=== PATIENT | male | born 1950 | race Caucasian/White ===

== ENCOUNTER 2023-10-28 13:04 | Emergency (ER) | payer MEDICARE, BC, SELFPAY ==
[2023-10-28 13:16] VITALS: BP 150/84; PULSE 65; RESP 16; TEMP 36.3; O2SAT 98; BMI 21.6
--- OUTSIDE RECORDS SUMMARY | 2023-10-28 13:55 | XMS_ITS | Clinical Summary ---
Author Name Unknown Organization [employer] [facility] Address [place], [place] [address] Care Team Providers Care Pin Attacher Name Role Phone Votel, Alphonse Sutherland MD Primary Care Provider + Allergies Active Allergy Reactions Criticality Noted Date Comments Venom-Honey Bee Edema High 03/25/2010 Bee venom Gets exuberant local reaction, no anaphylaxis Medications Medication Sig Dispensed Refills Start Date End Date Status acetaminophen (TYLENOL EXTRA STRGTH) 500 mg tabletIndications :S/P MVR (mitral valve replacement) Take 2 Tablets (1,000 mg) by mouth every 6 hours if needed. Max acetaminophen dose: 4000mg in 24 hrs. 0 02/25/2021 Active aspirin chewable 81 mg chewable tabletIndications :S/P MVR (mitral valve replacement) Chew 1 Tablet (81 mg) by mouth once daily with a meal. 0 02/26/2021 Active amoxicillin (AMOXIL) 500 mg tabletIndications :Need for SBE (subacute bacterial endocarditis) prophylaxis Take 4 tabs 1 hour before dental work 4 Tablet 4 11/11/2022 Active amLODIPine (NORVASC) 5 mg tabletIndications :Primary Raynaud's phenomenon Take 1 Tablet (5 mg) by mouth once daily. 90 Tablet 3 07/06/2023 Active warfarin (COUMADIN) 5 mg tabletIndications :Persistent atrial fibrillation (HC),Anticoagulat ion monitoring, INR range 2.5-3.5,S/P mitral valve replacement Take by mouth 2.5 mg (5 mg x 0.5) every Sat; 5 mg (5 mg x 1) all other days in the evening OR as directed 0 10/25/2023 Active warfarin (COUMADIN) 5 mg tabletIndications :Persistent atrial fibrillation (HC),Anticoagulat ion monitoring, INR range 2.5-3.5,S/P mitral valve replacement Take by mouth 5 mg (5 mg x 1 tablet) every day in the evening OR as directed 91 Tablet 1 08/02/2023 4 Discontinue d(Other - add note to specify (E-cancel not sent)) warfarin (COUMADIN) 5 mg tabletIndications :Persistent atrial fibrillation (HC),Anticoagulat ion monitoring, INR range 2.5-3.5,S/P mitral valve replacement Take by mouth 10/10: 2.5 mg; Otherwise 5 mg every day in the evening OR as directed 0 10/09/2023 4 Discontinue d(Other - add note to specify (E-cancel not sent)) warfarin (COUMADIN) 5 mg tabletIndications :Persistent atrial fibrillation (HC),Anticoagulat ion monitoring, INR range 2.5-3.5,S/P mitral valve replacement Take by mouth 2.5 mg (5 mg x 0.5) every Sat; 5 mg (5 mg x 1) all other days in the evening OR as directed 0 10/09/2023 4 Discontinue d(Other - add note to specify (E-cancel not sent)) warfarin (COUMADIN) 5 mg tabletIndications :Persistent atrial fibrillation (HC),Anticoagulat ion monitoring, INR range 2.5-3.5,S/P mitral valve replacement Take by mouth 2.5 mg (5 mg x 0.5) every Wed, Sat; 5 mg (5 mg x 1) all other days in the evening OR as directed 0 10/19/2023 4 Discontinue d(Other - add note to specify (E-cancel not sent)) Active Problems Patient Care Coordination No te Formatting of this note is d ifferent from the original. HF/Structural/Prevention Research Eligibility Review Date: 10/23/19 Upcoming Visit Location: [facility] Age: 69 y.o. Private Medicare Equivalent Body mass index is 20.88 kg/m??. Social History Tobacco Use Smoking Status Former Smoker ? ? Packs/day: 0.50 ? ? Years: 2.00 ? ? Pack years: 1.00 ? ? Types: Cigarettes ? ? Last attempt to quit: 10/04/1969 ? ? Years since quittin.0 Smokeless Tobacco Never Used Tobacco Comment Some light smoking while in the [place] 34 years ago Social History Substance and Sexual Activity Alcohol Use Yes ? ? Alcohol/week: 3.0 standard drinks ? ? Types: 3 Glasses of wine per week Comment: 3-4 glasses of wine per week/ Daily (according to ) Comments: HF: DNQ Structural: DNQ Prevention: Uncertain Not insulin Dependent Vesalius:Potential Problem Noted Date Diagnosed Date Anticoagulation monitoring, INR range 2.5-3.5 S/P mitral valve replacement 02/26/2021 S/P MVR (mitral valve replacement) 02/18/2021 Permanent atrial fibrillation 09/05/2020 Adenomatous colon polyp 03/29/2018 Overview: Colonoscopy 03/2018 polyp, repeat in 5 years Depression, acute 10/19/2017 Hyperlipidemia 02/08/2015 ACP (advance care planning) 03/31/2014 Overview: Patient has identified primary concerned person(s): Yes Add primary concerned person: Yes Health Care Agent(s): Primary Health Care Agent: Do Reddy Relationship: spouse or [phone] Secondary Health Care Agent: Relationship: Phone: Conservator: Relationship: Phone: Guardian: Relationship: Phone: Patient has Advance Care Plan Documents (Health Care Directive, POLST): No, Health Care Packet given to patient. Patient has identified Specific Treatment Preferences: No Specific limits to treatment preferences NOT identified: ASSUME FULL TREATMENT. S/P MVR (mitral valve repair) 03/29/2014 Overview: folding plasty repair of P3 segment of the posterior leaflet, and repair of the posterior commissure, and annuloplasty with a 30 mm CAMDEN 3-D ring -- 03/29/14 Dr. Lynn S/P Maze operation for atrial fibrillation 03/29 Overview: Ablation Maze procedure (isolation of pulmonary veins and ablation of the left atrial appendage) with exclusion of left atrial appendage (40 mm AtriCure clip). -- 03/29/14 Dr. Lynn Dysfunctional alcohol use 07/09/2011 Mitral regurgitation; moderate severe 08/01/2010 Depression 03/25/2010 Persistent atrial fibrillation Overview: -07/2010 atrial fibrillation despite cardioversion *rate control and anticoagulation strategy -03/29/2014 Ablation Maze procedure (isolation of pulmonary veins and ablation of the left atrial appendage) with exclusion of left atrial appendage (40 mm AtriCure clip). -- Dr. Lynn -09/20/2014 cardioversion with goal of sinus rhythm post ablation MAZE -06/2015 recurrent persistent atrial fibrillation *06/21/2015 cardioversion Mitral valve prolapse Overview: -associated moderate/severe mitral regurgitation -03/29/2014: folding plasty repair of P3 segment of the posterior leaflet, and repair of the posterior commissure, and annuloplasty with a 30 mm CAMDEN 3-D ring -- Dr. Lynn Chronotropic incompetence Biventricular Pacemaker 09/22/2013 Overview: -09/22/2013 BIV placed for chronotropic incompetence with Dr. Gonzalez *no atrial lead placed as patient with chronic afib at that time (rate control strategy) Nonischemic cardiomyopathy Overview: -History of LV EF 45%, cMR showing no evidence of scar -04/2013: LV EF 55% Transient global amnesia 02/02/2015 Cardiovascular symptoms Resolved Problems Problem Noted Date Diagnosed Date Resolved Date Peripheral vasoconstriction 09/05/2020 01/10/2021 Amnesia 02/02/2015 02/02/2015 Bradycardia 02/03/2013 03/19/2014 Other specified visual disturbances 04/22/2010 03/19/2014 Encounter for long-term (cur rent) use of anticoagulants 03/26/2010 04/04/2014 Overview: INR Goal Range: 2.0 -3.0 Hypertrophy of prostate with out urinary obstruction and other lower urinary tract symptoms (LUTS) 03/25/2010 07/13/2011 Lyme disease 03/25/2010 03/09/2014 Hx of Prostate cancer 03/25/2010 03/25/ 2022 Overview: History of radical prostatectomy with residual mild incontinence. Mitral valve disorders 03/25/201004/22 Encounters Date Type Department Care Team Description 10/27/2023 Telephone [facility] [address] [place] [phone] Analisa Mcintosh, RN Reschedule EP Procedure 10/27/2023 Telephone [facility] [address] [facility] [place] [address] [place] [address] Saba Contreras RN pre/post procedure 10/25/2023 10:30 AM VICTIM WITNESS ADMINISTRATOR Orders Only [facility] [address] [place] [address] [place] Lab 10/25/2023 Anticoagulation (warfarin) [facility] [address] [place] [address] 1, [place] [facility] Anticoagulation 10/25/2023 Telephone [facility] [address] [address] Ly Mckoy RN Anticoagulation 10/25/2023 Travel 10/19/2023 Anticoagulation (warfarin) [facility] [address] [place] [address] [place] [facility] Anticoagulation 10/18/2023 1:00 PM VICTIM WITNESS ADMINISTRATOR Orders Only [facility] [address] [place] [address] Lab[place] Lab 10/18/2023 Travel 10/09/2023 Anticoagulation (warfarin) [facility] [address] [place] [address] 1[place] [facility] Anticoagulation 10/08/2023 2:50 PM VICTIM WITNESS ADMINISTRATOR Orders Only [facility] [address] [place] [address] Lab, [place] 10/08/2023 Travel 09/29/2023 Telephone [facility] [address] [place] [address] 1[place] [facility] Anticoagulation (Hold Orders for Procedure 10/28/2023 ) 09/23/2023 Telephone [facility] [address] [place] [phone] Ly Mckoy, RN Appointment 08/23/2023 Telephone [facility] [address] [place] [address] June Husain PA Questions 08/17/2023 Travel 07/31/2023 Refill [facility] [address] [place] [address] Alphonse Claros MD Refill Request (Warfarin) from Last 3 Months Immunizations Name Administration Dates Next Due AMB INFLUENZA IIV3 (AGE 65+ YRS) PF (Flu Clinic Only) 08/10/2019 AMB Influenza, IIV4 PF (=>6 mos Flulaval,Fluzone Fluarix)(Flu Clinic Only) 09/01/2018 Amb Influenza, Inactivated A IIV4 (Age 65+ Years) Preserv Free 06/24/2020 COVID-19 vaccine (Moderna 100mcg/0.5mL) PF, MDV 12/26/2020,11/28/2020 Influenza, High-dose Inactivated 08/17/2016,02/2014 Influenza, High-dose Quadrivalent Inactivated Influenza, IIV3 (Age 6-35 mos) 07/15/2011 Influenza, IIV3 (Age >=3 years) 10/18/2013,07/22 Influenza, IIV4 06/25/2015 Influenza, Inactivated AIIV4 (Age 65+ Years) Preserv Free 07/06/2023,06/23/2022 Influenza, Inactivated IIV3 (Age 65+ Years) Preserv Free 09/21/2017 Oral Polio Vaccine 11/06/1994 Pneumococcal Poly,23-Valent (Pneumovax) 02/10/20 18 Pneumococcal conj 13-Valent (Prevnar 13) 016 Td (Age >=7 Years) 11/06/1994 Tdap 12/30/2009 Typhoid, Unspecified 11/06/1994 Family History Medical History Relation Name Comments Heart Disease Brother 3 A fib Good Health Brother 4 Diabetes Father type II Heart Disease Father Hyperlipidemia Father Hypertension Father Cancer-colon Maternal Aunt Asthma Maternal Uncle Hyperlipidemia Mother Other Sister 2 MS Relation Name Status Comments Brother 1 Alive Brother 2 Alive Brother 3 Brother 4 Father (Age 78) infection Maternal Aunt Maternal Uncle Mother Alive Sister 1 Alive Sister 2 Social History Tobacco Use Types Packs/Day Years Used Date Smoking Tobacco: Former Cigarettes 0.5 2 1 968 - 10/04/1969 Smokeless Tobacco: Never Tobacco Cessation:Counseling Given: Yes Comments:Some light smoking while in the [place] 34 years ago Alcohol Use Standard Drinks/Week Comments Yes 7 (1 standard drink = 0.6 oz pur e alcohol) 1-2 drinks per day PHQ-2 Answer Date Recorded PHQ-2 TOTAL SCORE 0 07/04/2023 Social Connections Answer Date Recorded Frequency of Communication with Friends and Fami ly 0 07/04/2023 Financial Resource Strain Answer Date R ecorded Difficulty of Paying Living Expenses 3 07/04/2023 Difficulty of Paying Living Expenses Not on file 07/04/2023 Food Insecurity Answer Date Recorded Worried About Running Out of Food in the Last Ye ar 1 07/04/2023 Transportation Needs Answer Date Record ed Lack of Transportation (Medical) 1 07/04/2023 Housing Stability Answer Date Recorded Unable to Pay for Housing in the Last Year 1 07/04/2023 Sex and Gender Information Value Date Recorded Sex Assigned at Male 12/20/2020 3:53 PM CDT Gender Identity Not on file Sexual Orientation Straight 12/20/2020 3: 53 PM CDT Obstetrics History Last Filed Vital Signs Vital Sign Reading Time Taken Comments Blood Pressure 122/80 07/13/2023 1:55 PM CDT Pulse 60 07/13/2023 1:55 PM CDT Temperature 36.6 ??C (97.8 ??F) 07/06/2023 1:39 PM CD T Respiratory Rate 14 07/13/2023 1:55 PM CDT Oxygen Saturation 98% 07/06/2023 1:39 PM CDT Inhaled Oxygen Concentration - - Weight 65.1 kg (143 lb 8 oz) 07/06/2023 1:39 PM CDT Height 173 cm (5' 8.11) 07/06/2023 1:39 PM CDT Body Mass Index 21.75 07/06/2023 1:39 PM CDT Plan of Treatment Upcoming Encounters Date Type Department Care Team (Late st Contact Info) Description 11/15/2023 10:45 AM VICTIM WITNESS ADMINISTRATOR Orders Only [facility] [address] [place] [address] [place] 11/18/2023 11:00 AM VICTIM WITNESS ADMINISTRATOR Appointment [facility] [address] [phone] You Gonzalez MD [address] [place], [place] [id number] Health Maintenance Due Date Last Done Comments Hepatitis C screening for ag e 18-79 1967 Zoster (shingles) series for age 50+ (1 of 2) 1999 Tetanus booster 12/31/2019 12/30/2009, 11/06/1994 Medicare Wellness for age 65+ 07/05/2024, 06/23/2022, 09/05/2020 BMI (ht and wt on same day) for age 18+ 07/06/2024 07/06/2023, 02/16/2023, 01/14/2023, Additional history exists Depression screening for age 12+ 07/06/2024 07/06/2023, 06/26/2022, 06/23/2022, Additional history exists Colonoscopy through age 75 03/28/202803/28, 03/28/2018, 03/28/2018 Lipids for age 45-75 07/06/2028 07/06/2023, 06/23/2022, 11/21/2020, Additional history exists Tdap Completed 12/30/2009 Pneumococcal series for age 65+ Completed 02/09/2018, 09/11/2016, 09/11/2016 AAA screening age 65-74 Completed 01/13/2021 Influenza for age 65+ Completed 07/06/2023 , 06/23/2022, 07/28/2021, Additional history exists COVID-19 vaccine series Completed 08/05/20, 08/10/2022, 04/01/2022, Additional history exists Medical Devices Implanted Type Area Import/Export Freight Forwarder Device Identifier Shelf Expiration Date Model / Serial / Lot Proposal Rep-P Implanted:2012 by You Gonzalez MD (Quantity not on file) SHOTGUN SHELL ASSEMBLY MACHINE ADJUSTER-P Medtronic [id number] / [id number] / Anw [id number] Implanted:Qty: 1 on 03/29/2014 by Fidencio Lynn MD at [facility] Mitral Valve [employer] 11/14/2018 [id number] / [id number] / Lead Pacing 60cm Bipolar Epicardial Capsure - [id number] Implanted:Qty: 1 on 02/18/2021 by Felix Luevano MBBS at [facility] N/A: Heart Medtronic Cardiac Rhythm 03/21/2022 [id number] / [id number] / Valve Mitral 25-33mm On-X Conformx Ring Prosthetic - [id number] Implanted:Qty: 1 on 02/18/2021 by Felix Luevano MBBS at [facility] N/A: Mitral Valve [employer] 10/31/2026 [facility] / [id number] / Procedures Procedure Name Priority Date/Time Associated Diagnosis Comments PROTIME-INR STAT 10/25/2023 10:26 AM VICTIM WITNESS ADMINISTRATOR Persistent atrial fibrillation (HC) Anticoagulation monitoring, INR range 2.5-3.5 S/P mitral valve replacement PROTIME-INR STAT 10/18/2023 1:13 PM VICTIM WITNESS ADMINISTRATOR Persistent atrial fibrillation (HC) Anticoagulation monitoring, INR range 2.5-3.5 S/P mitral valve replacement PROTIME-INR Routine 10/08/2023 2:46 PM VICTIM WITNESS ADMINISTRATOR Persistent atrial fibrillation (HC) Anticoagulation monitoring, INR range 2.5-3.5 S/P mitral valve replacement from Last 3 Months Results * (ABNORMAL) PROTIME-INR (10/25/2023 10:26 AM VICTIM WITNESS ADMINISTRATOR) Only the most recent of3 resultswithin the time period is included. INR 2.3(H) <1.3 10/25/2023 3:38 PM VICTIM WITNESS ADMINISTRATOR [facility] PROTIME 25.4(H) 10.3 - 12.3 sec 10/25/2023 3:38 PM [facility] Blood BLOOD SPECIMEN / Unknown Venipuncture / Unknown 10/25/2023 10:26 AM VICTIM WITNESS ADMINISTRATOR 10/25/2023 10:28 AM VICTIM WITNESS ADMINISTRATOR Narrative [facility] - 10/25/2023 3:38 PM VICTIM WITNESS ADMINISTRATOR ?Therapeutic Range 2.0-3.0 for most anticoagulated patients 2.5-3.5 or 4.0 for high risk patients The INR is only used for patients on stable oral anticoagulant therapy. It makes no significant contribution to the diagnosis or treatment of patients whose Protime is prolonged for other reasons. INR results are increased when heparin levels exceed 1.0 U/mL, which corresponds to an aPTT >125 seconds if the patient is on UFH. Alphonse Claros MD HEMATOLOGY [facility] [address] [place] [address], from Last 3 Months Advance Directives Latest Code Status on File Code Status Date Activated Date Inactivated Comments Full Code 12/17/2021 12:45 PM 12/17/2021 4:15 PM Question Answer Comments Code Status Discussion: Other Code Status History Code Status Date Activated Date Inactivated Comments Full Code 11/06/2021 2:01 PM 11/06/2021 6:10 PM Question Answer Comments Code Status Discussion: Unable to Assess Preferences, Provider to review later Full Code 04/25/2021 1:06 PM 04/25/2021 5:20 PM Question Answer Comments Code Status Discussion: Per Existing Order Full Code 02/18/2021 5:55 AM 02/25/2021 6:30 PM Question Answer Comments Code Status Discussion: Discussed Per Existing Order Full Code 01/10/2021 1:40 PM 01/10/2021 8:24 PM Question Answer Comments Code Status Discussion: Not Discussed Care Teams Pin Attacher Relationship Specialty Start Date End Date Votel, Alphonse Sutherland MD [address] [place] [address] [address] PCP - General Family Practice 04/21/17
--- NOTE | 2023-10-28 15:20 | ED.GENADULT ---
HPI - General Adult General Date Seen: 10/28/23 Chief complaint: Back Injury/Pain Stated complaint: Left hip and back severe pain-no trauma Time Seen by Provider: 10/28/23 13:21 Source: patient Mode of arrival: ambulatory Limitations: no limitations History of Present Illness HPI narrative: Patient is a 73-year-old male who presents for evaluation of pain in the area of his left SI joint. He did not have specific injury but it has been bothering him for couple of days and today it seemed to be getting worse. He does not have radicular pain, has not had fevers, night sweats, unexpected weight loss, weakness or other complaints. He cannot take nonsteroidals secondary to being on Coumadin for atrial fibrillation and mitral valve replacement. He has tried some Tylenol which did not seem to make much difference. He feels like something might be ?out of place. He feels better laying on his back with his left knee or both knees pulled to his chest. Related Data Home Medications Medication Instructions Recorded Confirmed amlodipine 5 mg tablet 5 mg PO DAILY 10/28/23 10/28/23 aspirin 81 mg tablet,delayed 81 mg PO DAILY 10/28/23 10/28/23 release (Adult Aspirin Regimen) warfarin 5 mg tablet 5 mg PO DAILY 10/28/23 10/28/23 Allergies Allergy/AdvReac Type Severity Reaction Status Date / Time venom-honey bee Allergy Intermediate Hives Verified 10/28/23 13:13 Review of Systems Status of ROS: Reports: 10 or more systems reviewed and unremarkable except as noted in History and below [facility] Social History Smoking Status: Never smoker Exam Narrative: Exam Narrative: Vital signs reviewed In general, alert, nontoxic male. Looks comfortable. Back: Normal appearance. No swelling, no tenderness over the flank. He has focal tenderness over the left SI joint. Extremities: Unremarkable. Neuro: He is alert, conversant. Gait stable. Strength equal. Const: Vital Signs, click to edit/add: Vital Signs - 24 hr 10/28/23 13:16 Temperature 97.4 F L Pulse Rate [Pulse Oximeter] 65 Respiratory Rate 16 Blood Pressure [Ri ght Upper Arm] 150/84 H Pulse Oximetry 98 Oxygen Delivery Me thod Room Air Course Course ED Course: Overall, patient presents with pain that seems to be related to SI joint pathology from some source. There is no external sign of inflammation, no red flags to suggest that he needs imaging, pain is not suggestive of retroperitoneal hematoma. For now I have suggested conservative measures, will try a few days of prednisone, Tylenol 3 times daily, ice. Physical therapy would be a good next step if not improving over the next couple of days. For acute worsening return at any time. Vital Signs Vital signs: Initial Vital Signs Temperature 97.4 F L 10/28/23 13:16 Temperature Source Temporal Artery Scan 10/28/23 13:16 Pulse Rate 65 10/28/23 13:16 Pulse Rhythm Regular 10/28/23 13:16 Respiratory Rate 16 10/28/23 13:16 Blood Pressure 150/84 H 10/28/23 13:16 Blood Pressure Mean 106 H 10/28/23 13:16 Blood Pressure Position Sitting 10/28/23 13:16 Pulse Oximetry 98 10/28/23 13:16 Oxygen Delivery Method Room Air 10/28/23 13:16 Vital Signs Temperature 97.4 F L 10/28/23 13:16 Pulse Rate 65 10/28/23 13:16 Respiratory Rate 16 10/28/23 13:16 Blood Pressure 150/84 H 10/28/23 13:16 Pulse Oximetry 98 10/28/23 13:16 Oxygen Delivery Method Room Air 10/28/23 13:16 Temperature 97.4 F L 10/28/23 13:16 Pulse Rate 65 10/28/23 13:16 Respiratory Rate 16 10/28/23 13:16 Blood Pressure 150/84 H 10/28/23 13:16 Pulse Oximetry 98 10/28/23 13:16 Oxygen Delivery Method Room Air 10/28/23 13:16 Discharge Plan Discharge Clinical Impression: Disorder of left sacroiliac joint Patient Disposition: Home, Self-Care Condition: Stable Additional Instructions: Tylenol 1000 mg 3 times daily, ice. Prednisone as prescribed. Physical therapy can be helpful for this as well if you are not improving over the next couple of days; you could also try stretches as included. If you are not gradually improving despite treatment, you should be seen again by your clinic doctor for consideration of imaging. Prescriptions: No Action amlodipine 5 mg tablet 5 mg PO DAILY warfarin 5 mg tablet 5 mg PO DAILY aspirin [Adult Aspirin Regimen] 81 mg tablet,delayed release (DR/EC) 81 mg PO DAILY Follow Up/Referrals: Alphonse Claros MD [Primary Care Provider] - Stand Alone Forms: [employer] Info Instructions
== END 2023-10-28 14:03 | disposition home or self-care (01) ==
LOC: ED 13:52
PROVIDERS: Emergency Provider Emergency Medicine; PCP Family Medicine
DX: M46.1 Sacroiliitis, not elsewhere classified (principal)
CPT/HCPCS: 99283; 99284

== ENCOUNTER 2023-11-15 14:15 | Outpatient (RCR) | payer MEDICARE, BC, SELFPAY | END 2024-01-20 11:54 | disposition home or self-care (01) | PROVIDERS: PCP Family Medicine; Visit Provider Family Medicine | DX: M54.50 Low back pain, unspecified (principal); M25.69 Stiffness of other specified joint, not elsewhere classified; Z51.89 Encounter for other specified aftercare | CPT/HCPCS: 97110; 97140; 97162 ==

== ENCOUNTER 2025-02-09 09:17 | Outpatient (CLI) | payer MEDICARE, BC, SELFPAY ==
--- NOTE | 2025-02-09 11:15 | P.ANES_ITS ---
Anesthesia Charges Start Date/Time Anesthesia Start Date: 02/09/25 Anesthesia Start Time: 10:40 Stop Date/Time Anesthesia Stop Date: 02/09/25 Anesthesia Stop Time: 11:13 Coding CPT Codes CPT Codes: ANES LWR INTST SCR COLSC - 34967 ([id number]) P3 - PATIENT W/SEVERE SYS DISEASE, QK - VIRTUAL ASSISTANT FOR ADVERTISERS 2-4 CNCRNT ANES PROC, QX - TRAINING TECHNICIAN SVC W/ MD MED DIRECTION
--- NOTE | 2025-02-09 11:15 | W.ANESCHARGE ---
Anesthesia Charges Start Date/Time Anesthesia Start Date: 02/09/25 Anesthesia Start Time: 10:40 Stop Date/Time Anesthesia Stop Date: 02/09/25 Anesthesia Stop Time: 11:13 Coding CPT Codes CPT Codes: ANES LWR INTST SCR COLSC - 82679 ([id number]) P3 - PATIENT W/SEVERE SYS DISEASE, QK - COSMETIC ACCOUNT COORDINATOR 2-4 CNCRNT ANES PROC, QX - ELECTRONICS TECH SVC W/ MD MED DIRECTION
--- NOTE | 2025-02-09 11:29 | W.ANESCHARGE ---
Anesthesia Charges Start Date/Time Anesthesia Start Date: 02/09/25 Anesthesia Start Time: 10:40 Stop Date/Time Anesthesia Stop Date: 02/09/25 Anesthesia Stop Time: 11:13 Summary Extremes of Age - Over 70 or under 1: MDA Coding CPT Codes CPT Codes: ANES LWR INTST SCR COLSC - 80470 ([id number]) QK - SLIP COVER ESTIMATOR 2-4 CNCRNT ANES PROC, QX - ADVISORY SERVICES ASSOCIATE SVC W/ MD MED DIRECTION, P3 - PATIENT W/SEVERE SYS DISEASE Additional Codes: Summary - Extremes of Age - Over 70 or under 1: MDA ([id number])
== END 2025-02-09 09:18 | disposition home or self-care (01) ==
PROVIDERS: PCP Family Medicine; Visit Provider Internal Medicine Gastroenterology
DX: Z12.11 Encounter for screening for malignant neoplasm of colon (principal); Z86.0101 Personal history of adenomatous and serrated colon polyps; K64.8 Other hemorrhoids
CPT/HCPCS: 00812; 45378; 99100; J2704